=== PATIENT | male | born 1960 | race Caucasian/White ===

== ENCOUNTER → 2021-09-11 | Outpatient (CLI) | payer OTHER | LOC: M RAD 09:24 | PROVIDERS: ATTEND Nurse Practitioner Family | DX: N50.89 Other specified disorders of the male genital organs (principal); N44.2 Benign cyst of testis ==

== ENCOUNTER → 2022-03-19 | Outpatient (REF) | payer OTHER | LOC: M SFHCDERM 13:09 | PROVIDERS: ATTEND Nurse Practitioner Family | DX: L82.1 Other seborrheic keratosis (principal) ==